=== PATIENT | female | born 1980 | race Caucasian/White ===

== ENCOUNTER 2016-10-28 20:23 | Emergency (ER) | payer OTHER ==
[~2016-10-28] VITALS: Ht 175.3 cm; Wt 126.0 kg
[~2016-10-28 20:23] MED LIST: FERRTAB2; prenatal gummies
[2016-10-28 20:25] VITALS: BP 115/72; PULSE 100; RESP 18; TEMP 99.1; O2SAT 98
[2016-10-28 21:09] LABS: BACTERIA, URINE FEW /hpf; BLOOD, URINE NEG (NEG); COMMENT (UR) CULTURE INDICATED; CULTURE IF INDICATED CULTURE INDICATED; GLUCOSE,URINE NEG (NEG); KETONE, URINE NEG (NEG); MUCUS URINE FEW /lpf (OCC); SQUAMOUS EPITHELIAL CELL URINE 3 /hpf (0-5); URINE COLOR YELLOW (YELLW/STRAW)
[2016-10-28 21:11] LABS: NITRITE,URINE POS (NEG)
--- NOTE | 2016-10-28 21:53 | PD ---
HPI Chief Complaint: Fever Time Seen by Provider: 21:48 Travel History International Travel<30 days: No Contact w/Intl Traveler<30days: No Traveled to known affect area: No History of Present Illness HPI 36 year old white female 4 para 2 AB 1 with a 32 week IUP presents to emergency department with complaints of fever. She states that she woke this morning with a subjective fever. She has had mild headache and general malaise. She denies any ear pain, sore throat, cough, congestion, shortness of breath, nausea, vomiting, abdominal pain, leakage of fluid, vaginal bleeding, dysuria, frequency, back pain. No rashes or lesions. LOCATION: Generalized QUALITY: Dull SEVERITY: Mild TIMING: Gradual DURATION: One day CONTACTS: None MODIFYING FACTORS: No exacerbating or palliative activity. ASSOCIATED TIME AND SYMPTOMS: Headache, and general malaise. PFSH Past Medical History Medical History: Denies Significant Hx Tetanus Vaccination: < 5 Years ?: Past Surgical History Narrative Surgical Social History Alcohol Use: No Tobacco Use: No Substance Use: No Allergies-Medications (Allergen,Severity, Reaction): Coded Allergies: Sulfa (Verified Allergy, Mild, Rash, 10/28/16) Reported Meds & Prescriptions Reported Meds & Active Scripts Active Reported [ gummies] Ferralet (Multi-Vit/Iron-Folic Gnvo-V32-Mfl C) 90-1-0.012-120 mg Tab Review of Systems Except as stated in HPI: all other systems reviewed are Neg Physical Exam Narrative GENERAL: Well-developed, well-nourished in no acute distress. Nontoxic appearing. HEAD: Normocephalic, atraumatic. EYES: Pupils equal round and reactive. Extraocular motions intact. No scleral icterus. No injection or drainage. ENT: TMs clear without erythema. The external auditory canals clear. Nose: clear . Posterior pharynx is pink and moist. No tonsillar edema or exudate. Uvula midline. Airway patent. NECK: Trachea midline.Supple, nontender, moves head freely. No central bony tenderness or spasm. CARDIOVASCULAR: Regular rate and rhythm without murmurs, gallops, or rubs. RESPIRATORY: Clear to auscultation. Breath sounds equal bilaterally. No wheezes , rales, or rhonchi. GASTROINTESTINAL: Abdomen soft, non-tender, gravid. No guarding. EXTREMITIES: No clubbing, cyanosis, or edema. No joint tenderness, effusion, or edema noted. BACK: Nontender without deformity or crepitance. No flank tenderness. Data Data Last Documented VS Vital Signs Date Time Temp Pulse Resp B/P Pulse Ox O2 Delivery O2 Flow Rate FiO2 10/28/16 20:25 99.1 100 18 115/72 98 Orders Urinalysis - C+S If Indicated (10/28/16 20:43) Urine Culture (10/28/16 20:45) Ceftriaxone Inj (Rocephin Inj) (10/28/16 22:00) Influenzae A/B Antigen (10/28/16 21:46) Acetaminophen (Tylenol) (10/28/16 23:30) Labs Laboratory Tests Test 10/28/16 20:45 Urine Color YELLOW Urine Turbidity HAZY Urine pH 7.0 Urine Specific [place] 1.017 Urine Protein TRACE mg/dL Urine Glucose (UA) NEG mg/dL Urine Ketones NEG mg/dL Urine Occult Blood NEG Urine Nitrite POS Urine Bilirubin NEG Urine Urobilinogen LESS THAN 2.0 MG/DL Urine Leukocyte Esterase SMALL Urine WBC 14 /hpf Urine Squamous Epithelial 3 /hpf Cells Urine Amorphous Sediment RARE Urine Bacteria FEW /hpf Urine Mucus FEW /lpf Microscopic Urinalysis Comment CULTURE INDICATED MDM Medical Decision Making Medical Screen Exam Complete: Yes Emergency Medical Condition: Yes Medical Record Reviewed: Yes Interpretation(s) Laboratory Tests Test 10/28/16 20:45 Urine Color YELLOW Urine Turbidity HAZY Urine pH 7.0 Urine Specific [place] 1.017 Urine Protein TRACE mg/dL Urine Glucose (UA) NEG mg/dL Urine Ketones NEG mg/dL Urine Occult Blood NEG Urine Nitrite POS Urine Bilirubin NEG Urine Urobilinogen LESS THAN 2.0 MG/DL Urine Leukocyte Esterase SMALL Urine WBC 14 /hpf Urine Squamous Epithelial 3 /hpf Cells Urine Amorphous Sediment RARE Urine Bacteria FEW /hpf Urine Mucus FEW /lpf Microscopic Urinalysis Comment CULTURE INDICATED Differential Diagnosis Differential diagnosis: Influenza, URI, febrile illness, UTI Narrative Course Patient's urine is positive for UTI. She is given 1 g of Rocephin IM. Flu test pending. The patient has tolerated by mouth fluids. She is not vomiting. Flu test is negative. The patient does not look toxic in any way. There is no nausea vomiting. No abdominal pain. No back pain. The patient is medically stable for discharge. This is UTI, fever, Diagnosis Primary Impression: UTI (urinary tract infection) Qualified Code: N30.00 - Acute cystitis without hematuria Additional Impressions: Fever Qualified Code: R50.9 - Fever, unspecified fever cause Qualified Code: Z3A.32 - 32 weeks gestation of Patient Instructions: General Instructions Additional Instructions: Rest. Increase fluids. Macrobid. Tylenol every 4 hours as needed for fever. Follow-up with the OB ER over the weekend if any problems develop. Return to the ER if any problems. Follow-up with your OB doctor on Monday. Med/Other Pt SpecificInfo: Prescription(s) given Scripts Nitrofurantoin Monohydrate Macrocrystals (Macrobid)100 Mg Qig174 Mg PO BID #20 CAP Prov:Regi Tobin MD 10/28/16 Disposition: 01 DISCHARGE HOME Condition: Stable Perez Lewis Oct 28, 2016 21:52
[2016-10-28] MEDS ORDERED: ACETAMINOPHEN 500 MG CPLT PO ONE (23:30)
[2016-10-28] MEDS ORDERED: MACR100C2 PO (23:31)
[2016-12-19] MEDS ORDERED: FURO1TAB62 PO (16:04)
[2016-12-19] MEDS ORDERED: IRON1TAB8 PO (16:04)
== END 2016-10-28 23:42 | disposition home or self-care (01) ==
LOC: NEPB 20:23
DX: O23.13 Infections of bladder in pregnancy, third trimester (principal); B96.20 Unspecified Escherichia coli [E. coli] as the cause of diseases classified elsewhere; O26.893 Other specified pregnancy related conditions, third trimester; R50.9 Fever, unspecified; R51 Headache; R53.81 Other malaise; Z3A.32 32 weeks gestation of pregnancy
CPT/HCPCS: 81001; 87077; 87086; 87186; 87804; 96372; 99283; J0696

== ENCOUNTER 2016-12-10 09:02 | Inpatient (IN) | payer OTHER ==
[~2016-12-10] VITALS: Ht 175.3 cm; Wt 78.9 kg
[2016-12-10] MEDS ORDERED: LACTATED RINGER'S 1000 ML INJ 1,000 ML IV ONE (10:02)
[2016-12-10 10:13] LABS: AUTOMATED NEUTROPHIL # 4.1 TH/MM3 (1.8-7.7); BASOPHIL % 0.4 % (0.0-2.0); EOSINOPHIL # 0.1 TH/MM3 (0-0.4); EOSINOPHIL % 0.8 % (0.0-4.0); HEMATOCRIT 31.7 % (35.0-46.0); HEMO FLAGS DIFF FINAL; LYMPHOCYTE # 2.2 TH/MM3 (1.0-4.8); MEAN CELL VOLUME 93.3 FL (80.0-100.0); MEAN CORPUSCULAR HGB CONC 34.3 % (32.0-36.0); MONO % 8.7 % (0.0-8.0); NEUT % 59.1 % (16.0-70.0); PLATELET COUNT 406 TH/MM3 (150-450); RED CELL DISTRIBUTION WIDTH 14.1 % (11.6-17.2)
[2016-12-10 10:31] LABS: BACTERIA, URINE MOD /hpf; BLOOD, URINE NEG (NEG); COMMENT (UR) CULTURE INDICATED; CULTURE IF INDICATED CULTURE INDICATED; GLUCOSE,URINE NEG (NEG); KETONE, URINE NEG (NEG); NITRITE,URINE POS (NEG); SQUAMOUS EPITHELIAL CELL URINE 32 /hpf (0-5); TRANSITIONAL EPI CELLS, URINE <1 /hpf; URINE COLOR LIGHT-YELLOW (YELLW/STRAW)
--- NOTE | 2016-12-10 10:31 | HHI.HP ---
HPI Chief Complaint Repeat CXN and bilateral tubal ligation Date Seen: Dec 10, 2016 Travel History International Travel<30 Days: No Contact w/Intl Traveler<30Days: No History of Present Illness HPI Patient is a 36 year old at 39-0/7 weeks gestation who presents today for repeat CXN. care with [facility]. She denies any vaginal bleeding or discharge. No gush or leaking of fluids. Positive movement. No contractions. History Past Medical History Medical History: Denies Significant Hx Obstetric History Obstetric History s/p and CXN for failure to progress Past Surgical History Narrative Surgical CXN Family History Family History: Negative Social History Alcohol Use: No Tobacco Use: No Substance Abuse: No Allergies-Medications (Allergen,Severity, Reaction): Coded Allergies: Sulfa (Verified Allergy, Mild, Rash, 12/07/16) Home Meds Reported Medications [ gummies] No Conflict Check 07/19/16 Multi-Vit/Iron-Folic Olwp-R74-Cjc C (Ferralet)90-1-0.012-120 mg Tab 07/19/16 Review of Systems Except as stated in HPI: all other systems reviewed are Neg General / Constitutional: No: Fever, Chills Eyes: No: Visual changes HENT: No: Headaches Cardiovascular: No: Chest Pain or Discomfort Respiratory: No: Short of Breath Gastrointestinal: No: Nausea, Vomiting Genitourinary: No: Pelvic Pain, Discharge, Vaginal Bleeding Musculoskeletal: No: Edema Psychiatric: No: Substance Abuse Physical Exam Narrative GENERAL: Well-nourished, well-developed patient. SKIN: Warm and dry. HEAD: Normocephalic and atraumatic. EYES: No scleral icterus. No injection or drainage. ENT: No nasal drainage noted. Mucous membranes pink. Airway patent. NECK: Supple, trachea midline. No JVD. CARDIOVASCULAR: Regular rate and rhythm without murmurs, gallops, or rubs. RESPIRATORY: Breath sounds equal bilaterally. No accessory muscle use. ABDOMEN/GI: Abdomen soft, non-tender, bowel sounds present, no rebound, no guarding Gravid to 39 weeks size GENITOURINARY: External Genitalia: intact and normal in appearance Membranes: intact Uterine Contractions: irregular FHT's: Category: I Baseline: 140 Reactive: + Variability: moderate Decels: none EXTREMITIES: No cyanosis or edema. BACK: Nontender without obvious deformity. No CVA tenderness. NEUROLOGICAL: Awake and alert. Motor and sensory grossly within normal limits. Normal speech. Data Data Vital Signs Reviewed: Yes Orders Admit To Inpatient (12/10/16 ) Vital Signs (Adult) .ON ADMISSION (12/10/16 10:02) Activity Oob Ad Sue (12/10/16 10:02) ^ Heart (12/10/16 10:02) Urinary Catheter Management MARIAH.Q8H (12/10/16 10:02) ^ Preps (12/10/16 10:02) Scd / Jose De Jesus / Foot Pump MARIAH.QSHIFT (12/10/16 10:02) ^ Ultrasound For Locatio (12/10/16 10:02) Diet Npo (12/10/16 Lunch) Lactated Ringer's 1000 Ml Inj (Lr 1000 M (12/10/16 10:02) Lactated Ringer's 1000 Ml Inj (Lr 1000 M (12/10/16 10:32) Cefazolin 2 Gm Premix (Ancef 2 Gm Premix (12/10/16 11:15) Citric Acid-Sodium Citrate Liq (Bicitra (12/10/16 11:45) Type And Screen (12/10/16 10:02) Complete Blood Count With Diff (12/10/16 10:02) Urinalysis - C+S If Indicated (12/10/16 10:02) Specimen To Be Collected PRN (12/10/16 10:02) Labs Laboratory Tests Test 12/10/16 09:30 White Blood Count 7.0 Red Blood Count 3.40 Hemoglobin 10.9 Hematocrit 31.7 Mean Corpuscular Volume 93.3 Mean Corpuscular Hemoglobin 32.0 Mean Corpuscular Hemoglobin 34.3 Concent Red Cell Distribution Width 14.1 Platelet Count 406 Mean Platelet Volume 7.2 Neutrophils (%) (Auto) 59.1 Lymphocytes (%) (Auto) 31.0 Monocytes (%) (Auto) 8.7 Eosinophils (%) (Auto) 0.8 Basophils (%) (Auto) 0.4 Neutrophils # (Auto) 4.1 Lymphocytes # (Auto) 2.2 Monocytes # (Auto) 0.6 Eosinophils # (Auto) 0.1 Basophils # (Auto) 0.0 CBC Comment DIFF FINAL Differential Comment Assessment/Plan Assessment and Plan 36 year old at 39-0/7 weeks gestation. 1. IUP- Category I tracing, reassuring. 2. Repeat CXN 3. Bilateral tubal ligation 4. GBS negative sdw Kiley Eric MD R2 Dec 10, 2016 10:31
[2016-12-10] MEDS ORDERED: LACTATED RINGER'S 1000 ML INJ 1,000 ML IV SCH ×2 (10:32→17:22)
[2016-12-10] MEDS ORDERED: MORPHINE SULFATE PF 5 MG/10 ML VIAL ONE (10:39)
[2016-12-10] MEDS ORDERED: ONDANSETRON HCL 4 MG/2 ML VIAL ONE (10:39)
[2016-12-10] MEDS ORDERED: DICLOFENAC SODIUM 37.5 MG/ML VIAL IV PUSH ONE (10:39)
[2016-12-10] MEDS ORDERED: OXYTOCIN 10 UNIT/ML AMP ONE (10:40)
[2016-12-10] MEDS ORDERED: ceFAZolin 2 GM PREMIX 50 ML IV SCH (11:15)
[2016-12-10] MEDS ORDERED: CITRIC ACID-SODIUM CITRATE LIQ 30 ML UDC PO SCH (11:45)
[2016-12-10] MEDS ORDERED: OXYTOCIN 30 UNITS-500ML PREMIX 500 ML IV ONE (12:30)
[2016-12-10] MEDS ORDERED: ACETAMINOPHEN 325 MG TAB PO PRN (12:30)
[2016-12-10] MEDS ORDERED: ONDANSETRON HCL 4 MG/2 ML VIAL IV PUSH PRN (12:30)
[2016-12-10] MEDS ORDERED: oxyCODONE/ACETAMINOPHEN 5 MG/325 MG TAB PO PRN (12:30)
[2016-12-10] MEDS ORDERED: SODIUM CHLORIDE 0.9% FLUSH 10 ML FLUSH IV FLUSH PRN (12:30)
[2016-12-10] MEDS ORDERED: ZOLPIDEM TARTRATE 5 MG TAB PO PRN (12:30)
[2016-12-10] MEDS ORDERED: SIMETHICONE 80 MG CHEWABLE TAB PO PRN (12:30)
[2016-12-10 12:35] VITALS: BP 112/76; PULSE 63; RESP 20; TEMP 98.7; O2SAT 98
[2016-12-10 12:40] VITALS: BP 113/71; PULSE 20; RESP 20; O2SAT 98
[2016-12-10 12:52] VITALS: BP 111/71; PULSE 20; PULSE 68
[2016-12-10 12:53] VITALS: RESP 20; O2SAT 98
[2016-12-10] MEDS ORDERED: OXYTOCIN 30 UNITS-500ML PREMIX 500 ML ONE (13:09)
[2016-12-10 13:13] VITALS: BP 112/66; PULSE 50; RESP 20; TEMP 97.8; O2SAT 98
[2016-12-10 14:00] VITALS: BP 126/72; PULSE 64; RESP 18; TEMP 97.7; O2SAT 99
[2016-12-10] MEDS ORDERED: EPIDURAL-DIPHENHYDRAMINE HCL 50 MG/ML VIAL IV PUSH PRN (14:00)
[2016-12-10] MEDS ORDERED: EPIDURAL-NALOXONE HCL 0.4 MG/ML AMP IV PRN (14:00)
[2016-12-10] MEDS ORDERED: EPIDURAL-DIPHENHYDRAMINE HCL 50 MG CAP PO PRN (14:00)
[2016-12-10] MEDS ORDERED: EPIDURAL-DO NOT ADMINISTER ANTICOAGULANTS XX PRN (14:00)
[2016-12-10] MEDS ORDERED: EPIDURAL-NO SYSTEMIC NARCOTICS XX PRN (14:00)
[2016-12-10] MEDS: DICLOFENAC SODIUM 37.5 MG/ML VIAL IV PUSH SCH (21:08)
[2016-12-10] MEDS ORDERED: OXYTOCIN 30 UNITS-500ML PREMIX 500 ML IV PRN (22:30)
[2016-12-11 04:10] VITALS: BP 106/61; PULSE 66; RESP 17; TEMP 98
[2016-12-11] MEDS: DICLOFENAC SODIUM 37.5 MG/ML VIAL IV PUSH SCH (04:14)
[2016-12-11] MEDS: IBUPROFEN 600 MG TAB PO PRN ×3 (08:02→20:38)
[2016-12-11] MEDS: DOCUSATE SODIUM 50 MG/SENNA 8.6 MG TAB PO PRN ×2 (08:03→20:38)
[2016-12-11] MEDS: oxyCODONE/ACETAMINOPHEN 5 MG/325 MG TAB PO PRN ×4 (08:03→20:38)
[2016-12-11 08:24] VITALS: BP 103/68; PULSE 61; RESP 18; TEMP 97.8
[2016-12-11 08:25] LABS: AUTOMATED NEUTROPHIL # 12.9 TH/MM3 (1.8-7.7); BASOPHIL % 0.2 % (0.0-2.0); EOSINOPHIL # 0.1 TH/MM3 (0-0.4); EOSINOPHIL % 0.5 % (0.0-4.0); HEMATOCRIT 29.1 % (35.0-46.0); HEMO FLAGS DIFF FINAL; LYMPH % 12.1 % (9.0-44.0); LYMPHOCYTE # 1.9 TH/MM3 (1.0-4.8); MEAN CELL VOLUME 94.3 FL (80.0-100.0); MEAN CORPUSCULAR HEMOGLOBIN 30.9 PG (27.0-34.0); MEAN CORPUSCULAR HGB CONC 32.8 % (32.0-36.0); MONO % 4.7 % (0.0-8.0); NEUT % 82.5 % (16.0-70.0); PLATELET COUNT 362 TH/MM3 (150-450); RED BLOOD COUNT 3.08 MIL/MM3 (4.00-5.30); RED CELL DISTRIBUTION WIDTH 14.3 % (11.6-17.2); WHITE BLOOD COUNT 15.6 TH/MM3 (4.0-11.0)
--- NOTE | 2016-12-11 08:27 | HHI.OB ---
Subjective Post Operative Day: 1 Remarks Patient is doing well this morning. She is ambulating and voiding without difficulty. Her pain is controlled with medications. Her vaginal bleeding has decreased from yesterday. She is breast-feeding successfully. She is passing gas. No fever, chills, chest pain, shortness of breath. Objective Vitals/I&O Vital Signs Date Time Temp Pulse Resp B/P Pulse Ox O2 Delivery O2 Flow Rate FiO2 12/11/16 04:10 98.0 66 17 106/61 12/10/16 14:00 99 12/10/16 14:00 97.7 12/10/16 14:00 64 18 126/72 12/10/16 13:13 97.8 98 12/10/16 13:13 50 20 112/66 12/10/16 12:53 20 98 12/10/16 12:52 20 111/71 12/10/16 12:52 68 12/10/16 12:40 20 20 113/71 12/10/16 12:40 98 12/10/16 12:35 98.7 12/10/16 12:35 63 20 112/76 98 Result Diagram: 12/10/16 0930 Objective Remarks GENERAL: Well-nourished, well-developed patient. CARDIOVASCULAR: Regular rate and rhythm without murmurs, gallops, or rubs. RESPIRATORY: Breath sounds equal bilaterally. No accessory muscle use. ABDOMEN/GI: Abdomen soft, non-tender, bowel sounds present. Incision: Clean, dry and intact. Fundus: Firm, non-tender at umbilicus. GENITOURINARY: Light to moderate bleeding. EXTREMITIES: No cyanosis or edema, non-tender, without signs of DVT. Medications and IVs Current Medications Medications (Trade) Dose Ordered Sig/Bebe Route Start Time Stop Time Status Last Admin (Lr 1000 ml Inj) 1,000 ml @ 100 mls/hr Q10H IV 12/10/16 17:22 12/11/16 13:21 12/10/16 18:21 (NS Flush) 2 ml BID IV FLUSH 12/10/16 21:00 (NS Flush) 2 ml UNSCH PRN IV FLUSH 12/10/16 12:30 (Mylicon Chew) 80 mg QID PRN PO 12/10/16 12:30 (Tylenol) 650 mg Q6H PRN PO 12/10/16 12:30 (Motrin) 600 mg Q6H PRN PO 12/10/16 12:30 12/11/16 08:02 (Percocet 5-325 Mg) 1 tab Q4H PRN PO 12/10/16 12:30 (Percocet 5-325 Mg) 2 tab Q4H PRN PO 12/10/16 12:30 12/11/16 08:03 (Shireen-Colace) 2 tab Q12H PRN PO 12/10/16 12:30 12/11/16 08:03 (Ambien) 5 mg HS PRN PO 12/10/16 12:30 (M-M-R Ii Inj) 0.5 ml ONCE ONCE SQ 12/11/16 16:00 12/11/16 16:01 (Boostrix Inj) 0.5 ml ONCE ONCE IM 12/11/16 16:00 12/11/16 16:01 (Zofran Inj) 4 mg Q6H PRN IV PUSH 12/10/16 12:30 Miscellaneous Information NO SYSTEMIC NARCOTICS TO BE GIVEN FO... UNSCH PRN XX 12/10/16 14:00 12/11/16 13:59 (Narcan Inj) 0.4 mg UNSCH PRN IV 12/10/16 14:00 12/11/16 13:59 (Benadryl Inj) 25 mg Q6H PRN IV PUSH 12/10/16 14:00 12/11/16 13:59 (Benadryl) 50 mg Q6H PRN PO 12/10/16 14:00 12/11/16 13:59 Miscellaneous Information ALL NURSING DEPARTMENTS UNSCH PRN XX 12/10/16 14:00 12/11/16 13:59 Assessment/Plan Assessment and Plan 36 y/o female who is POD# 1 s/p CXN. -Continue routine care. -Percocet and Motrin PRN pain. -Postop H&H 10.9 / 31.7 -Encouraged OOB. Advised pelvic rest for 6 wks. Will need a f/u appt. in 1 wk for incision check. -D/c in 1-2 days. onur Whitfield Discharge Planning Likely in 1-2 days Enrique Stearns MD R2 Dec 11, 2016 08:27
[2016-12-11] MEDS ORDERED: DIPHTH/TETANUS/ACEL PERTUSSIS (BOOSTER) 0.5 ML VIAL/PFS IM ONE (16:00)
[2016-12-11] MEDS ORDERED: MEASLES, MUMPS, RUBELLA VACCINE 0.5 ML VIAL SQ ONE (16:00)
[2016-12-11 19:37] VITALS: BP 119/69; PULSE 67; RESP 18; TEMP 98.3
[2016-12-11] MEDS: SODIUM CHLORIDE 0.9% FLUSH 10 ML FLUSH IV FLUSH SCH (21:00)
[2016-12-12] MEDS: oxyCODONE/ACETAMINOPHEN 5 MG/325 MG TAB PO PRN ×5 (01:02→20:00)
[2016-12-12] MEDS: IBUPROFEN 600 MG TAB PO PRN ×2 (05:00→13:01)
[2016-12-12] MEDS ORDERED: SENN1TAB PO (07:37)
[2016-12-12] MEDS ORDERED: OXYC1TAB63 PO (07:37)
[2016-12-12] MEDS ORDERED: IBUP-232 PO (07:37)
--- NOTE | 2016-12-12 07:38 | HHI.DCPOC ---
Discharge Care Plan Diagnosis: (1) care following delivery Report Symptoms to Your Doctor -Temperate above 100.5 degrees -Redness, of incision or excessive or foul smelling drainage -Unusual pain or calf pain -Increased vaginal bleeding -Painful or difficulty urinating -Feelings of extreme sadness or anxiety after 2 weeks Goals to Promote Your Health * To maintain your health at the optimal level, follow up with your OB provider within one week for an incision check. Directions to Meet Your Goals Take your medications as prescribed Follow your dietary instruction Follow activity as directed Ensure plenty of rest for recovery Drink fluids for hydration Keep your appointments as scheduled Take your immunizations and boosters as scheduled If your symptoms worsen call your PCP, if no PCP go to Urgent Care Center or Emergency Room Smoking is Dangerous to Your Health. Avoid second hand smoke Call the 24-hour crisis hotline for domestic abuse at Calixto Christopher MD R1 Dec 12, 2016 07:38
[2016-12-12 07:40] VITALS: BP 111/78; PULSE 67; RESP 18; TEMP 98.2
--- NOTE | 2016-12-12 07:46 | HHI.OB ---
Subjective Post Operative Day: 2 Remarks Patient seen and examined this morning. AFVSS overnight. Postoperative day #2. Pain is well controlled. Incision is not draining. Decreased lochia. Denies dysuria. No breast tenderness. She is feeding the baby via breast without any reported issues. Appetite is good. No nausea or vomiting. Endorses flatus. No bowel movements yet following . Ambulating well without issues. Denies calf pain, shortness of breath, or cough. She has no other complaints or concerns this morning. (Calixto Christopher MD R1) Objective Vitals/I&O Vital Signs Date Time Temp Pulse Resp B/P Pulse Ox O2 Delivery O2 Flow Rate FiO2 12/12/16 02:02 16 12/11/16 21:38 16 12/11/16 19:37 98.3 67 18 119/69 12/11/16 08:24 97.8 61 18 12/11/16 08:24 103/68 (Calixto Christopher MD R1) Result Diagram: 12/11/16 0750 Objective Remarks GENERAL: Well-nourished, well-developed patient. CARDIOVASCULAR: Regular rate and rhythm without murmurs, gallops, or rubs. RESPIRATORY: Breath sounds equal bilaterally. No accessory muscle use. ABDOMEN/GI: Abdomen soft, non-tender, bowel sounds present. Incision: Clean, dry and intact. Steri-strips intact. Fundus: Firm, non-tender at umbilicus. GENITOURINARY: Light to moderate bleeding. EXTREMITIES: No cyanosis or edema, non-tender, without signs of DVT. Medications and IVs Current Medications Medications (Trade) Dose Ordered Sig/Bebe Route Start Time Stop Time Status Last Admin (NS Flush) 2 ml BID IV FLUSH 12/10/16 21:00 (NS Flush) 2 ml UNSCH PRN IV FLUSH 12/10/16 12:30 (Mylicon Chew) 80 mg QID PRN PO 12/10/16 12:30 (Tylenol) 650 mg Q6H PRN PO 12/10/16 12:30 (Motrin) 600 mg Q6H PRN PO 12/10/16 12:30 12/12/16 05:00 (Percocet 5-325 Mg) 1 tab Q4H PRN PO 12/10/16 12:30 (Percocet 5-325 Mg) 2 tab Q4H PRN PO 12/10/16 12:30 12/12/16 05:00 (Shireen-Colace) 2 tab Q12H PRN PO 12/10/16 12:30 12/11/16 20:38 (Ambien) 5 mg HS PRN PO 12/10/16 12:30 (Zofran Inj) 4 mg Q6H PRN IV PUSH 12/10/16 12:30 (Calixto Christopher MD R1) Assessment/Plan Assessment and Plan 36 year old now who is POD#2 s/p CXN and BTL. - Continue routine care - Percocet and Motrin PRN pain - Postop H&H 9.5 / 29.1 - Urine culture growing >100,000 cfus GNR, will treat with Keflex - Encouraged OOB, as tolerated - Advised pelvic rest for 6 wks - States she has a f/u appt. in 1 wk for incision check with [facility] - Stable for discharge today onur Pack Discharge Planning Stable for discharge today (Calixto Christopher MD R1) Collaborating MD Comments Agree with discharge plans (Marta Pack MD) Calixto Christopher MD R1 Dec 12, 2016 07:46 Marta Pack MD Dec 12, 2016 09:56
[2016-12-12] MEDS ORDERED: CEPH-460 PO (08:13)
[2016-12-12] MEDS: CEPHALEXIN MONOHYDRATE 500 MG CAP PO SCH ×2 (09:35→15:32)
[2016-12-12] MEDS: DOCUSATE SODIUM 50 MG/SENNA 8.6 MG TAB PO PRN (12:57)
[2016-12-12] MEDS ORDERED: KETOROLAC TROMETHAMINE 30 MG/ML (IVP) VIAL IM PRN (18:15)
[2016-12-13] MEDS: oxyCODONE/ACETAMINOPHEN 5 MG/325 MG TAB PO PRN ×2 (01:53→10:13)
[2016-12-13] MEDS: CEPHALEXIN MONOHYDRATE 500 MG CAP PO SCH ×2 (01:55→07:56)
[2016-12-13] MEDS: IBUPROFEN 600 MG TAB PO PRN (06:07)
--- NOTE | 2016-12-13 08:13 | HHI.OB ---
Subjective Post Operative Day: 3 Remarks Patient seen and examined this morning. AFVSS overnight. Postoperative day #3. Pain is better controlled that yesterday. Incision is clean and not draining. Decreased lochia. Denies dysuria. No breast tenderness. She is feeding the baby via breast and formula. Appetite good. No nausea or vomiting. Endorses flatus. She does report some lightheadedness and dizziness yesterday afternoon and needed to sit down, she does feel better today. Denies calf pain, shortness of breath, or cough. Objective Result Diagram: 12/11/16 0750 Objective Remarks GENERAL: Well-nourished, well-developed patient. CARDIOVASCULAR: Regular rate and rhythm without murmurs, gallops, or rubs. RESPIRATORY: Breath sounds equal bilaterally. No accessory muscle use. ABDOMEN/GI: Abdomen soft, non-tender, bowel sounds present. Incision: Clean, dry and intact. Steri-strips intact. Fundus: Firm, non-tender at umbilicus. GENITOURINARY: Light bleeding. EXTREMITIES: No cyanosis or edema, non-tender, without signs of DVT. Medications and IVs Current Medications Medications (Trade) Dose Ordered Sig/Ebbe Route Start Time Stop Time Status Last Admin (NS Flush) 2 ml BID IV FLUSH 12/10/16 21:00 (NS Flush) 2 ml UNSCH PRN IV FLUSH 12/10/16 12:30 (Mylicon Chew) 80 mg QID PRN PO 12/10/16 12:30 12/12/16 13:55 (Tylenol) 650 mg Q6H PRN PO 12/10/16 12:30 (Motrin) 600 mg Q6H PRN PO 12/10/16 12:30 12/13/16 06:07 (Percocet 5-325 Mg) 1 tab Q4H PRN PO 12/10/16 12:30 12/13/16 06:07 (Percocet 5-325 Mg) 2 tab Q4H PRN PO 12/10/16 12:30 12/13/16 01:53 (Shireen-Colace) 2 tab Q12H PRN PO 12/10/16 12:30 12/12/16 12:57 (Ambien) 5 mg HS PRN PO 12/10/16 12:30 (Zofran Inj) 4 mg Q6H PRN IV PUSH 12/10/16 12:30 (Toradol Inj) 30 mg Q6H PRN IM 12/12/16 18:15 12/17/16 18:14 12/12/16 18:23 (Keflex) 500 mg Q6H PO 12/13/16 01:30 12/13/16 07:56 Assessment/Plan Assessment and Plan 36 year old now who is POD#3 s/p CXN and BTL. - Continue routine care - Percocet and Motrin PRN pain - Postop H&H 9.5 / 29.1; will repeat CBC - Urine culture growing >100,000 cfus E. coli, will treat with Keflex - Encouraged OOB, as tolerated - Advised pelvic rest for 6 wks - States she has a f/u appt. on Tuesday 12/19 for incision check with [facility] - Stable for discharge today onur Whitfield Discharge Planning Stable for discharge today Calixto Christopher MD R1 Dec 13, 2016 08:13
[2016-12-13] MEDS: SODIUM CHLORIDE 0.9% FLUSH 10 ML FLUSH IV FLUSH SCH (09:00)
[2016-12-13 09:50] VITALS: BP 110/69; PULSE 64; RESP 18; TEMP 97.7
[2016-12-13 10:28] LABS: AUTOMATED NEUTROPHIL # 5.1 TH/MM3 (1.8-7.7); BASOPHIL % 0.3 % (0.0-2.0); EOSINOPHIL # 0.3 TH/MM3 (0-0.4); EOSINOPHIL % 3.5 % (0.0-4.0); HEMATOCRIT 26.3 % (35.0-46.0); HEMO FLAGS DIFF FINAL; LYMPH % 27.9 % (9.0-44.0); LYMPHOCYTE # 2.3 TH/MM3 (1.0-4.8); MEAN CELL VOLUME 95.2 FL (80.0-100.0); MEAN CORPUSCULAR HEMOGLOBIN 32.2 PG (27.0-34.0); MEAN CORPUSCULAR HGB CONC 33.9 % (32.0-36.0); MONO % 6.6 % (0.0-8.0); NEUT % 61.7 % (16.0-70.0); PLATELET COUNT 451 TH/MM3 (150-450); RED BLOOD COUNT 2.77 MIL/MM3 (4.00-5.30); RED CELL DISTRIBUTION WIDTH 14.4 % (11.6-17.2); WHITE BLOOD COUNT 8.2 TH/MM3 (4.0-11.0)
[2016-12-13] MEDS ORDERED: FERR325T PO (10:49)
--- NOTE | 2016-12-13 22:27 | MP ---
cc: FAUSTO WHITFIELD MD DATE OF SURGERY 12/10/16 PREOPERATIVE DIAGNOSIS Previous caesarean section and desires sterilization. POSTOPERATIVE DIAGNOSIS Previous caesarean section and desires sterilization. PROCEDURE Repeat low transverse caesarean section and bilateral tubal ligation. SURGEON Alejandro Whitfield MD [facility] [employer] [facility]. ANESTHESIA Spinal. INDICATIONS The patient is a 36 year old white female G4, P2, previous caesarean section now for repeat caesarean section and tubal ligation. The patient understands risks and benefits of tubal, that it is considered permanent yet less than 100% effective with 1:300 failure rate. PROCEDURE IN DETAIL The patient is taken to the operating room and placed in supine position on the operating room table. Adequate spine anesthesia was administered. She was prepped and draped for abdominal surgery. Her Pfannenstiel was excised out and cast away. The incision carried to the fascia sharply and the fascia dissected laterally off the rectus muscle. The peritoneal cavity entered sharply in the midline. The incision extended superiorly and inferiorly. The flat blade placed lower edge of the incision and the vesicoperitoneum reflected off the lower uterine segment and placed on a bladder blade. A transverse hysterotomy was made, extended bluntly bilaterally and a male infant was delivered at 11:26 a.m. weight 3280 grams, 7 lb. 4 oz and 7/8 . Cord blood obtained. Placenta manually extracted. The hysterotomy closed in running layer of 0 Chromic followed by imbricating suture of same. Hemostasis was achieved with a stick tie. The bladder reapproximated with running layer of 2-0 Vicryl. The uterus was elevated somewhat and then tubal performed with a Gianna clamp placed on the left tube and it was grasped in its mid portion, avascular section mesosalpinx was ___ and a hemostat passed through that and pulled two sutures through that window and then the tube is tied fore and aft on each side of the Gianna and then the intervening segment excised out with metzenbaum scissors. There were no complications. Procedure was done on the opposite side as well. Both tubal segments sent to pathology. The uterus elevated and blood suctioned from cul-de-sac and gutters and uterus replaced in peritoneal cavity. Parieto-peritoneum closed in running layer of 2-0 Vicryl. The rectus muscle reapproximated with a couple of stick ties of Chromic. Fascia closed in a running layer of 0 Vicryl. Subcutaneous tissue was reapproximated with running layer of 3-0 plain suture. Skin closed with 3-0 Monocryl on a subcuticular stitch. Compression dressing applied. Blood loss 500 cc. No complications. Sponge needle count correct times two. The patient sent to recovery in stable condition. MD ALE De La Cruz/ /12:28 PM /10:04 PM
[2016-12-19] MEDS ORDERED: IRON1TAB8 PO (16:04)
[2016-12-19] MEDS ORDERED: FURO1TAB62 PO (16:04)
== END 2016-12-13 12:18 | disposition home or self-care (01) | DRG 766 ==
LOC: H2EB 09:02 → H1EA 13:37
PROVIDERS: ADMIT Obstetrics & Gynecology Maternal & Fetal Medicine; ATTEND Obstetrics & Gynecology Maternal & Fetal Medicine
PROC: 10D00Z1 Extraction of Products of Conception, Low, Open Approach (ICD-10-PCS; principal; 2016-12-10)
PROC: 0UB70ZZ Excision of Bilateral Fallopian Tubes, Open Approach (ICD-10-PCS; 2016-12-10)
DX: O34.219 Maternal care for unspecified type scar from previous cesarean delivery (principal); O09.523 Supervision of elderly multigravida, third trimester; O90.9 Complication of the puerperium, unspecified; R42 Dizziness and giddiness; R82.99 Other abnormal findings in urine; Z30.2 Encounter for sterilization; Z3A.39 39 weeks gestation of pregnancy; Z37.0 Single live birth
CPT/HCPCS: 59025; 81001; 85025; 86850; 86900; 86901; 87077; 87086; 87186; 88302; 90715; J0690; J1130; J1885; J2274; J2405; J2590; J7120